=== PATIENT | female | born 2000 | race African-American/Black ===

== ENCOUNTER 2021-06-08 10:56 | Emergency (ER) | payer OTHER ==
[~2021-06-08] VITALS: Ht 170.2 cm; Wt 93.0 kg
[2021-06-08 11:04] VITALS: BP 139/68
--- NOTE | 2021-06-08 11:08 | NUR ---
THE PATIENT BIBS FOR HAVING BODY ACHES,HEADACHE,LOSS OF TASTE AND SMELL NAUSEA X 2 WEEKS. RATES BODY ACHES 5/10. OM ROOM AIR AND DENIES SOB. RESPIRATION REGULAR AND UNLABORED. WILL CONTINUE TO MONITOR THE PATIENT.
--- NOTE | 2021-06-08 11:22 | NUR ---
Patient discharged to home in stable condition. Written and verbal after care instructions given. Patient verbalizes understanding of instruction.
== END 2021-06-08 11:22 | disposition home or self-care (01) ==
LOC: ER 11:03
DX: U07.1 COVID-19 (principal); J45.909 Unspecified asthma, uncomplicated; F31.9 Bipolar disorder, unspecified; F17.200 Nicotine dependence, unspecified, uncomplicated; Z60.2 Problems related to living alone